=== PATIENT | male | born 1995 ===

== ENCOUNTER 2019-10-12 03:58 | Emergency (ER) | payer SELFPAY | END 2019-10-12 04:11 | disposition left against medical advice (07) | LOC: ER 10-22 07:12 | PROVIDERS: Emergency Provider Emergency Medicine; Family Provider Family Medicine | DX: Z53.21 Procedure and treatment not carried out due to patient leaving prior to being seen by health care provider (principal) | CPT/HCPCS: 99281 ==

== ENCOUNTER 2019-10-25 11:33 | Emergency (ER) | payer SELFPAY ==
[2019-10-25 11:39] VITALS: BP 118/86; PULSE 94; RESP 16; TEMP 36.6; O2SAT 97; BMI 21.7
[2019-10-25 11:47] VITALS: BMI 37.0
--- NOTE | 2019-10-25 12:39 | W.ED.GENADLT ---
HPI - General Adult General: Chief complaint: General Medical Stated complaint: Wants to be tested for drugs Time Seen by Provider: 10/25/19 12:34 Source: patient Mode of arrival: ambulatory Limitations: no limitations History of Present Illness: HPI narrative: Patient comes in today with complaints of urinary frequency and discomfort. Patient states that he was also want to know about getting a drug screen for his job but has no concerns for shortness of breath or chest pain or difficulty concentrating or hallucinations. Patient does admit to using methamphetamines about 1 week ago. Review of Systems General: Reports: 10 or more systems reviewed and unremarkable except in HPI and below : Reports: difficulty urinating and urinary frequency PFSH ED PFSH: Statuses (acute, chronic, etc) shown below reflect problem list status as previously entered and may not be historically accurate Social History Smoking and tobacco status: current every day smoker Physical Exam Const: COMMON NORMALS: no apparent distress and oriented x3 GENERAL APPEARANCE: cooperative HENMT: COMMON NORMALS: normocephalic, external ears normal, EAC's normal, TM's normal bilaterally and external nose normal HEAD & SCALP: normal to inspection and normocephalic FACE & SINUS: normal facial exam NOSE: external nose normal GENERAL EAR: hearing not grossly impaired EXTERNAL EAR: Yes external ears normal EXTERNAL AUDITORY CANAL: EAC's normal TYMPANIC MEMBRANE: TM's normal bilaterally MOUTH: oral and palatal mucosa normal THROAT: posterior oropharynx normal Eye: COMMON NORMALS: PERRL and EOMs intact bilaterally PUPIL: Yes PERRL Neck/C-Spine: COMMON NORMALS: full ROM and no lymphadenopathy Lymph: LYMPHATIC: no lymphedema noted Chest: COMMONS NORMALS: inspection of chest normal and palpation of chest normal Resp: COMMON NORMALS: normal respiratory effort and clear to auscultation bilaterally AUSCULTATION: clear to auscultation bilaterally Cardio: COMMON NORMALS: regular rate and regular rhythm RATE: regular rate RHYTHM: regular rhythm GI: COMMON NORMALS: normal to inspection, nondistended, normoactive bowel sounds and non-tender : COMMON NORMALS: Yes no CVA tenderness BLADDER/KIDNEY EXAM: Yes no CVA tenderness Back/Pelvis: COMMON NORMALS: no CVA tenderness and thoracic and lumbar spine normal to inspection Extremity: COMMON NORMALS: normal to inspection GENERAL: No edema Neuro: COMMON NORMALS: oriented x3, moves all extremities and no focal motor deficits Psych: COMMON NORMALS: mental status grossly normal and cooperative Skin: COMMON NORMALS: no rashes or lesions noted GENERAL SKIN EXAM: no rashes or lesions noted Course Vital Signs: Vital signs: Vital Signs Temperature 97.8 F 10/25/19 11:39 Pulse Rate 94 10/25/19 11:39 Respiratory Rate 16 10/25/19 11:39 Blood Pressure 118/86 10/25/19 11:39 Pulse Oximetry 97 10/25/19 11:39 MDM - General Adult MDM Narrative: Medical decision making narrative: Patient comes in today with complaints of urinary difficulty. At first patient would like to have gotten a drug screen but did not have any medical concerns that suggested abnormal drug ingestion. Respirations were even lungs were clear to auscultation. Abdomen soft nontender. Skin was warm and dry color is pink. Vital signs were stable. Differential diagnosis includes UTI, urethritis, malingering, substance abuse. Urinalysis was normal. Reviewed with patient recommendations for treatment with water and normal fluids and avoidance of acidic beverages. Patient reports understanding agreed to plan. Lab Data: Labs: Lab Results 10/25/19 Range/Units 12:30 Urine Color Yellow (Yellow) Urine Appearance Clear (CLEAR) Urine pH 5 (5-7) Ur Specific Gravit y 1.015 (1.005-1.030) Urine Protein Neg (Negative) Urine Glucose (UA) Norm (Normal) Urine Ketones Negative (Negative) Urine Occult Blood Neg (Negative) Urine Nitrate Negative (Negative) Urine Bilirubin Neg (NEGATIVE) Urine Urobilinogen Norm (Negative) mg/dL Ur Leukocyte Jess ase Negative (Negative) Discharge Plan Discharge Patient Disposition: Home, Self-Care Clinical Impression: Dysuria Condition: Stable Discharge Orders: Discharge Order (Routine); Ordered 10/25/19 Ordered By: Kwadwo Whiteside Referrals: Gladys Yuen MD [Family Provider] - Discharge Diet: Usual diet Discharge Activity: Increase activity as tolerated Patient Instructions: Dysuria (ED) Activity Restrictions/Additional Instructions: drink plenty of fluids healthy diet and exercise Follow-up with primary care as needed You may buy a drug screen kit at [facility] Level of Care Code ED Chamber Walker for Chg Fwd Exam Problem Focused
[2019-10-25 12:52] LABS: Add Urine Microscopic? NO
[2019-10-25 13:07] LABS: Bilirubin Urine Neg (NEGATIVE); Blood Urine Neg (Negative); Glucose Urine UA Norm (Normal); Ketones Urine Negative (Negative); Leukocyte Esterase Urine Negative (Negative); Nitrate Urine Negative (Negative); Protein Urine Neg (Negative); Specific Gravity, Urine 1.015 (1.005-1.030); Urine Appearance Clear (CLEAR); Urine Color Yellow (Yellow); Urobilinogen Urine Norm (Negative); pH Urine 5 (5-7)
[2019-10-25 13:18] VITALS: BP 107/66; PULSE 68; RESP 16; O2SAT 97
== END 2019-10-25 13:19 | disposition home or self-care (01) ==
PROVIDERS: Emergency Provider Nurse Practitioner Family; Family Provider Family Medicine
DX: R30.0 Dysuria (principal); F17.210 Nicotine dependence, cigarettes, uncomplicated
CPT/HCPCS: 81003; 99282; A9270